=== PATIENT | male | born 1970 | race Caucasian/White ===

== ENCOUNTER 2020-10-15 22:02 | Emergency (ER) | payer OTHER, SELFPAY ==
[2020-10-15] VITALS (14 sets, daily range): BP systolic 118–131; BP diastolic 66–75; PULSE 82–100; RESP 18; TEMP 36.3; O2SAT 93–98
[2020-10-15] MEDS: Ondansetron 4 MG/2 ML VIAL IVP (22:28)
[2020-10-15] MEDS: Lactated Ringers 1,000 ML 1000 ML IV ×2 (22:29→23:38)
--- NOTE | 2020-10-15 22:30 | DI.CT_ITS ---
Exam(s) CT ABDOMEN PELVIS W EXAM: CT ABDOMEN PELVIS W CLINICAL HISTORY: abdominal pain, rlq ttp. TECHNIQUE: Imaging Protocol: Axial computed tomography images with coronal and sagittal reformatted images were created and reviewed CONTRAST MATERIAL: Intravenous: Omnipaque 350 Contrast volume:100 ml Oral: no COMPARISON: No exams were available for comparison FINDINGS: ABDOMEN: Lung Bases: Normal where visualized. Liver: Moderate fatty infiltration. Mildly enlarged.. No measurable mass. Gallbladder and biliary tract: No radiodense calculus or dilation. Pancreas: Normal density, no abnormal calcifications or inflammatory process. Spleen: Normal. Kidneys: Normal size, contour and axis. No radiodense stones or obstructive uropathy. No masses seen. Adrenal glands: No masses seen. Abdominal Aorta: Abdominal portion non-dilated. Soft tissues: Tiny fatty containing umbilical hernia. PELVIS: Bladder: No gross wall thickening. No calculi.No focal mass. Bowel: No obstruction or bowel wall thickening. Appendix normal.Normal quantity of stool. Peritoneal cavity: No ascites, collection or mesenteric inflammatory response. Bones: Degenerative changes greatest at L4-5. Reproductive organs: Within normal limits. Lymph nodes: Tiny mesenteric nodes. No suspicious lead enlarged nodes. Impression: No evidence appendicitis. No acute abnormality. RADIATION DOSE DELIVERED: 954.69mGy.cm Total DLP DATA REPOSITORY: All CT scans at this facility are submitted to the National Radiology Data Registry (NRDR) Dose Index Registry (DIR) with the [employer] ([employer]). RADIATION OPTIMIZATION: All CT scans at this facility use at least one of these dose optimization te chniques: automated exposure control; mA and/or kV adjustment per patient size (includes targeted exa ms where dose is matched to clinical indication); or iterative reconstruction.
[2020-10-15 22:32] LABS: Source Nasal/Nares
--- NOTE | 2020-10-15 22:37 | W.ED.GENAD ---
Discharge Plan Disposition Patient Disposition: HOME Condition: Improving Discharge Details Clinical Impression: Nausea & vomiting, Gastroenteritis Primary Care Provider: Unknown,Unknown ED Provider: Janel Alcantar Home Meds and New Rx's Prescriptions: New sucralfate [Carafate] 1 gram tablet 1 gm PO QACHS Qty: 14 RF: 0 ondansetron 4 mg tablet,disintegrating 4 mg PO TID PRN (Reason: nausea and vomiting) Qty: 6 RF: 0 Continued metformin 500 mg Tablet 500 mg PO DAILY RF: 0 lisinopril 10 mg Tablet 5 mg PO DAILY RF: 0 atorvastatin 10 mg Tablet 10 mg PO DAILY RF: 0 Discharge Instructions Instructions: Ondansetron (By mouth), Gastroenteritis (ED), Acute Nausea and Vomiting (ED) Additional Instructions: Drink small amounts of fluid frequently in order to stay hydrated and avoid vomiting. Take Zofran 1 tablet every 6 hours as needed for severe nausea. Prescriptions for Zofran and Carafate were sent electronically to your pharmacy in [place]. Please maintain bowel rest tonight and tomorrow. Clear liquid diet in the morning and you may advance to bland foods like rice in the afternoon and evening. Advance diet slowly thereafter. Please contact your primary care physician to arrange follow-up. Return to the ER immediately for any worsening or new concerning symptoms. Discharge Data Discharge Date/Time-TO BE ENTERED AT DEPARTURE: 10/16/20 00:15 Medical Decision Making <Fidel Acevedo MD - Last Filed: 10/28/20 20:59> 2247??50-year-old male with history of type 2 diabetes, here with severe nausea and vomiting this evening with associated abdominal pain. Patient has diffuse tenderness but worse in the right lower quadrant. Patient was recently seen at outside hospital emergency department earlier this evening and treated with Reglan and Toradol and had a CT renal colic without IV contrast that was concerning for mildly dilated appendix. I am concerned about acute surgical pathology including acute appendicitis and will obtain CT of the abdomen pelvis with IV contrast to assess for inflammatory changes and surgical condition. I reviewed labs from outside hospital that revealed leukocytosis. Patient is quite jaundiced, will repeat to assess for developing transaminitis or electrolyte abnormalities given persistent vomiting. Patient does appear dehydrated. I will give LR 2 L bolus and Zofran IV for nausea 5 --labs reviewed and mild leukocytosis noted. Normal LFTs. Normal lipase. No anion gap acidosis. Patient reassessed and notes feeling much better, resting comfortably with no vomiting. CT the abdomen pelvis pending. 2 --CT the abdomen pelvis was interpreted by radiology: Mild mesenteric inflammation lymphadenopathy, likely related to enteritis or gastroenteritis. Hepatic steatosis. Normal appendix. Plan will be for discharge with antiemetics and bowel rest. <Janel Alcantar DO - Last Filed: 10/16/20 01:41> 2300 -- Please see Dr. Acevedo's note for initial presentation, exam, and plan. Case endorsed to f/u on CT imaging and final disposition. Labs reviewed. WBC 13. Lipase wnl. LFTs wnl. Covid negative. CT abdomen pelvis notes findings consistent with enteritis or gastroenteritis. 0030 -- Patient reassessed and he feels much better. He was able to tolerate p.o. without any further vomiting. He still complained of some epigastric pain and was given Carafate and a GI cocktail prior to discharge. He felt comfortable going home. He was given Zofran to go. Prescriptions for Zofran and Carafate also sent electronically to his pharmacy. He was advised to follow up with the primary care doctor for re-evaluation. Usual and customary return precautions given prior to discharge. Medical Records Medical records reviewed: Yes I reviewed the patient's medical records. Imaging Data Radiologic Study: Radiologist's impression: CT Abdomen And Pelvis With Contrast Exam date and time: 10/15/2020 10:39 PM Age: 50 years old Clinical indication: Other: Abdominal pain, rlq ttp TECHNIQUE: Imaging protocol: Computed tomography of the abdomen and pelvis with contrast. Radiation optimization: All CT scans at this facility use at least one of these dose optimization techniques: automated exposure control; mA and/or kV adjustment per patient size (includes targeted exams where dose is matched to clinical indication); or iterative reconstruction. Contrast material: OMNIPAQUE; Contrast volume: 100 ml; Contrast route: INTRAVENOUS (IV); COMPARISON: No relevant prior studies available. FINDINGS: Lungs: Lung bases are clear. Liver: Low attenuation liver suggesting hepatic steatosis. Gallbladder and bile ducts: Normal. No calcified stones. No ductal dilation. Pancreas: Normal. No ductal dilation. Spleen: Normal. No splenomegaly. Adrenal glands: Normal. No mass. Kidneys and ureters: Negative for hydronephrosis. Kidneys enhance symmetrically. Negative for perinephric fat stranding. Ureters are not dilated. Stomach and bowel: Collapsed stomach. Nondilated small bowel. Negative for inflammatory changes around the colon. Diverticula are scattered throughout the colon. Appendix: Negative for inflammatory changes around the appendix. Appendix is medial and inferior to the cecum. The appendix measures 7 mm diameter. Small appendicoliths are present. Appendiceal mckenzie are thin and unremarkable. Intraperitoneal space: Mild mesenteric fat stranding, greatest on the left. Negative for free fluid or free air. Negative for abscess. Vasculature: Unremarkable. No abdominal aortic aneurysm. Lymph nodes: Mild mesenteric lymphadenopathy. Mild retroperitoneal lymphadenopathy. Urinary bladder: Unremarkable as visualized. Reproductive: Unremarkable as visualized. Bones/joints: Negative for compression fracture. Moderate multilevel degenerative disc disease and facet arthropathy noted, greatest at L4-L5. Right paracentral disc protrusion and inferior extrusion are noted at L4-L5. Soft tissues: Unremarkable. IMPRESSION: 1. Mild mesenteric inflammation and lymphadenopathy, likely related to enteritis or gastroenteritis. 2. Hepatic steatosis. 3. Normal appendix. Lab Data Lab results reviewed: Yes I reviewed the patient's lab results. Labs: Laboratory Tests Range/Units 10/15/20 10/15/20 10/15/20 21:20 22:50 22:50 WBC (4.4-10.8) 10^3/uL 13.64 H RBC (4.36-5.78) 10^6/uL 5.22 Hgb (13.5-17.5) g/dL 14.5 Hct (40.0-50.0) % 44.9 MCV (80-95) fL 86.0 MCH (27.0-33.0) pg 27.8 MCHC (32.0-36.0) % 32.3 RDW (11.8-14.1) % 12.2 Plt Count (130-400) 10^3/uL 160 MPV (8.0-11.0) fL 10.2 Immature Gran % 0.5 Neutrophils % 92.9 Lymphocytes % 2.1 Monocytes % 4.0 Eosinophils % 0.3 Basophils % 0.2 Nucleated RBC % % 0 Absolute Neutrophils (1.2-6.7) 10^3/uL 12.67 H Absolute Lymphocytes (1.2-3.4) 10^3/uL 0.29 L Absolute Monocytes (0.1-0.8) 10^3/uL 0.55 Absolute Eosinophils (0.0-0.7) 10^3/uL 0.04 Absolute Basophils (0.0-0.2) 10^3/uL 0.03 Sodium (136-145) mmol/L 140 Potassium (3.5-5.1) mmol/L 4.0 Chloride (98-107) mmol/L 103 Carbon Dioxide (21.0-32.0) mmol/L 30.1 Anion Gap (3-11) mmol/L 6.9 BUN (7-18) mg/dL 25 H Creatinine (0.70-1.30) mg/dL 1.0 Estimated GFR/1.73 m2 (mL/min/1.73m2) >= 60.00 Glucose (74-106) mg/dL 218 H Calcium (8.5-10.1) mg/dL 8.6 Total Bilirubin (0.2-1.0) mg/dL 0.9 AST (15-37) U/L 20 ALT (16-63) U/L 44 Alkaline Phosphatase (46-116) U/L 42 L Total Protein (6.4-8.2) g/dL 7.2 Albumin (3.4-5.0) g/dL 3.8 Lipase (73-393) U/L 110 COVID-19 Source Nasal/Nares SARS-CoV-2 (PCR) (Negative) Negative HPI <Fidel Acevedo MD - Last Filed: 10/28/20 20:59> General Mode of arrival: ambulatory. Date/Time Provider Initiated Documentation: 10/15/20 22:15. Limitations to Documentation: no limitations. Information obtained by: patient and family. HPI Narrative: 50-year-old male with history of type 2 diabetes, presents with chief complaint of vomiting. Patient notes that he started vomiting after dinner. He had an onion ring and chicken finger and then started to feel ill. Symptoms started around 6 PM and have persisted. Vomiting has been fairly constant. He feels dehydrated. Patient was seen at outside hospital emergency department earlier this evening. He had a CT renal colic without IV contrast that revealed mildly dilated appendix with some lymphadenopathy noted. He was treated with Reglan and Toradol. He did not receive IV fluid. Labs revealed leukocytosis. He was discharged to return if any symptoms worsened. He notes his vomiting had improved and he was able to tolerate fluid prior to discharge and then when he got home vomiting returned. Of note, patient did recently have significant diarrhea earlier this week, symptoms did seem to resolve 2 days ago and has been symptom-free until tonight Patient drinks alcohol infrequently. Related Data Home Medications Medication Instructions Recorded Confirmed atorvastatin 10 mg PO DAILY 10/15/20 10/15/20 lisinopril 5 mg PO DAILY 10/15/20 10/15/20 metformin 500 mg PO DAILY 10/15/20 10/15/20 ondansetron 4 mg PO TID PRN #6 tab 10/16/20 sucralfate [Carafate] 1 gm PO QACHS #14 tab 10/16/20 Previous Rx's Medication Instructions Recorded ondansetron 4 mg PO TID PRN #6 tab 10/16/20 sucralfate [Carafate] 1 gm PO QACHS #14 tab 10/16/20 Allergies Allergy/AdvReac Type Severity Reaction Status Date / Time morphine Allergy Unverified 10/15/20 22:17 General Stated Complaint: Nausea/Vomit/Diar SHALINI: 3 Review of Systems <Fidel Acevedo MD - Last Filed: 10/28/20 20:59> All systems reviewed & are unremarkable except as noted in HPI and below Constitutional Constitutional: Denies fever(s) Cardiovascular Cardiovascular: Denies chest pain and Denies dyspnea Respiratory Respiratory: Denies dyspnea Gastrointestinal Gastrointestinal: Reports as per HPI Genitourinary Genitourinary: Denies difficulty urinating, Denies dysuria and Denies scrotal swelling Integumentary/Breasts Skin/Breast: Denies rash PFS <Fidel Acevedo MD - Last Filed: 10/28/20 20:59> Medical History (Updated 10/15/20 @ 23:55 by Fidel Acevedo MD) Diabetes type 2, controlled Social History Smoking/Tobacco Use Status: Never Smoking risk assessment performed?: Yes Alcohol Intake: current Alcohol Intake frequency: holidays/special occasions only Drug use: Never Substance use type: does not use Do you feel safe at home: Yes Do you feel safe in your relationship?: Yes Exam <Fidel Acevedo MD - Last Filed: 10/28/20 20:59> Const General: cooperative and no acute distress HENMT Mouth: mucous membranes dry Eyes Conjunctivae: normal conjunctivae Sclera: normal sclerae Neck Neck: trachea midline and supple Resp Auscultation: clear to auscultation bilaterally, no rales, no rhonchi and no wheezes Cardio Rate: tachycardic Rhythm: regular rhythm Heart Sounds: no gallops, no murmurs and no rubs GI Palpation: soft, not firm, no guarding, no masses, not rigid and tender (Diffuse, worse right lower quadrant) Skin General skin exam: no rashes or lesions noted Neuro General: patient alert, patient awake, patient oriented x3 and tone normal Extrem General: no edema Psych Appearance: grossly normal Mental Status: mental status grossly normal Speech and Movement: speech and movement normal Course <Fidel Acevedo MD - Last Filed: 10/28/20 20:59> Vital Signs Vital signs: Vital Signs Temperature 36.3 C L 10/15/20 22:11 Pulse 100 H 10/15/20 22:11 Respiratory Rate 18 10/15/20 22:11 Blood Pressure 128/67 10/15/20 22:11 Pulse Oximetry 96 10/15/20 22:11 Temperature 36.3 C L 10/15/20 22:11 Temperature Source Temporal Artery Scan 10/15/20 22:11 Pulse 100 H 10/15/20 22:11 Respiratory Rate 18 10/15/20 22:11 Respiratory Effort Non-Labored 10/15/20 22:15 Blood Pressure 128/67 10/15/20 22:11 Blood Pressure Position Sitting 10/15/20 22:11 Pulse Oximetry 96 10/15/20 22:11 Oxygen Delivery Method Room Air 10/15/20 22:11 Oxygen Flow Rate 0 10/15/20 22:11 Pain Level 5 10/15/20 22:11 Lab/Test Results Lab/Test Results: Laboratory Tests Range/Units 10/15/20 21:20 COVID-19 Source Nasal/Nares Sign Out <Fidel Acevedo MD - Last Filed: 10/28/20 20:59> Sign Out Data: Sign Out Comment: Plan to follow-up on CT of the abdomen pelvis and labs. Reassess after IV fluid and antiemetic for disposition. Last updated by Fidel Acevedo MD at 10/15/20 23:12
--- NOTE | 2020-10-15 22:56 | NUR.NOTE ---
Nursing Note: Patient reports nausea improved after receiving medication.
[2020-10-15 23:03] LABS: Abs Immature Grans 0.07 10^3/uL (0.0-0.06); Absolute Basophil Count 0.03 10^3/uL (0.0-0.2); Absolute Eosinophil Count 0.04 10^3/uL (0.0-0.7); Absolute Lymphocyte Count 0.29 10^3/uL (1.2-3.4); Absolute Monocyte Count 0.55 10^3/uL (0.1-0.8); Absolute Neutrophil Count 12.67 10^3/uL (1.2-6.7); Basophils % 0.2; Eosinophils % 0.3; HCT 44.9 % (40.0-50.0); HGB 14.5 g/dL (13.5-17.5); Immature Grans % 0.5; Lymphocytes % 2.1; MCH 27.8 pg (27.0-33.0); MCHC 32.3 % (32.0-36.0); MPV 10.2 fL (8.0-11.0); Neutrophils % 92.9; Nucleated RBC 0 %; Platelet Count 160 10^3/uL (130-400); RBC 5.22 10^6/uL (4.36-5.78); RDW 12.2 % (11.8-14.1); RDW-SD 38.6 fL; WBC 13.64 10^3/uL (4.4-10.8)
[2020-10-15 23:16] LABS: ALT 44 U/L (16-63); AST 20 U/L (15-37); Albumin 3.8 g/dL (3.4-5.0); Alkaline Phosphatase 42 U/L (46-116); Anion Gap 6.9 mmol/L (3-11); BUN 25 mg/dL (7-18); Bilirubin, Total 0.9 mg/dL (0.2-1.0); CO2 30.1 mmol/L (21.0-32.0); Calcium 8.6 mg/dL (8.5-10.1); Chloride 103 mmol/L (98-107); Glucose 218 mg/dL (74-106); Lipase 110 U/L (73-393); Sodium 140 mmol/L (136-145); Total Protein 7.2 g/dL (6.4-8.2)
--- NOTE | 2020-10-15 23:18 | NUR.NOTE ---
Nursing Note: Patient to CT scan via stretcher.
[2020-10-15 23:32] LABS: COVID-19 PCR Negative (Negative)
--- NOTE | 2020-10-15 23:40 | DI.VRAD_ITS ---
PROCEDURE INFORMATION: Exam: CT Abdomen And Pelvis With Contrast Exam date and time: 10/15/2020 10:39 PM Age: 50 years old Clinical indication: Other: Abdominal pain, rlq ttp TECHNIQUE: Imaging protocol: Computed tomography of the abdomen and pelvis with contrast. Radiation optimization: All CT scans at this facility use at least one of these dose optimization techniques: automated exposure control; mA and/or kV adjustment per patient size (includes targeted exams where dose is matched to clinical indication); or iterative reconstruction. Contrast material: OMNIPAQUE; Contrast volume: 100 ml; Contrast route: INTRAVENOUS (IV); COMPARISON: No relevant prior studies available. FINDINGS: Lungs: Lung bases are clear. Liver: Low attenuation liver suggesting hepatic steatosis. Gallbladder and bile ducts: Normal. No calcified stones. No ductal dilation. Pancreas: Normal. No ductal dilation. Spleen: Normal. No splenomegaly. Adrenal glands: Normal. No mass. Kidneys and ureters: Negative for hydronephrosis. Kidneys enhance symmetrically. Negative for perinephric fat stranding. Ureters are not dilated. Stomach and bowel: Collapsed stomach. Nondilated small bowel. Negative for inflammatory changes around the colon. Diverticula are scattered throughout the colon. Appendix: Negative for inflammatory changes around the appendix. Appendix is medial and inferior to the cecum. The appendix measures 7 mm diameter. Small appendicoliths are present. Appendiceal mckenzie are thin and unremarkable. Intraperitoneal space: Mild mesenteric fat stranding, greatest on the left. Negative for free fluid or free air. Negative for abscess. Vasculature: Unremarkable. No abdominal aortic aneurysm. Lymph nodes: Mild mesenteric lymphadenopathy. Mild retroperitoneal lymphadenopathy. Urinary bladder: Unremarkable as visualized. Reproductive: Unremarkable as visualized. Bones/joints: Negative for compression fracture. Moderate multilevel degenerative disc disease and facet arthropathy noted, greatest at L4-L5. Right paracentral disc protrusion and inferior extrusion are noted at L4-L5. Soft tissues: Unremarkable. IMPRESSION: 1. Mild mesenteric inflammation and lymphadenopathy, likely related to enteritis or gastroenteritis. 2. Hepatic steatosis. 3. Normal appendix. Dictated and Authenticated by: Sergio Owens MD. Ordering:CHEN Parra MD
--- NOTE | 2020-10-15 23:42 | NUR.NOTE ---
Nursing Note: Patient reports nausea relieved at this time and abd pain has improved.
[2020-10-16] VITALS (12 sets, daily range): BP systolic 116–124; BP diastolic 65–72; PULSE 84–93; RESP 18; TEMP 36.6; O2SAT 94–99
--- NOTE | 2020-10-16 00:28 | NUR.NOTE ---
Nursing Note: Patient givne po fluid trial of water and has been tolerating well so far.
[2020-10-16] MEDS: Sucralfate 1 GM TAB PO (01:09)
[2020-10-16] MEDS: Ondansetron O.D.T. 4 MG TABEF, 3 TABS/BTL PO (01:11)
== END 2020-10-16 00:15 | disposition home or self-care (01) ==
PROVIDERS: Student in an Organized Health Care Education/Training Program; Emergency Provider Physician Assistant
DX: R11.2 Nausea with vomiting, unspecified (principal); K52.9 Noninfective gastroenteritis and colitis, unspecified
CPT/HCPCS: 80053; 83690; 87635; 96361; 96374; 99285; 74177; 85025; 99284; J2405